=== PATIENT | male | born 1970 | race Caucasian/White ===

== ENCOUNTER 2018-11-25 09:00 | Outpatient (RCR) | payer OTHER, SELFPAY | END 2018-12-25 10:53 | disposition home or self-care (01) | LOC: PT.CARL 09:00 | PROVIDERS: Visit Provider Orthopaedic Surgery | DX: M25.562 Pain in left knee (principal) | CPT/HCPCS: 97010; 97014; 97110; 97112; 97116; 97140; 97163; 97164; G0283 ==

== ENCOUNTER 2020-07-24 15:29 | Emergency (ER) | payer BC, SELFPAY ==
[2020-07-24 15:40] VITALS: BP 134/68; PULSE 101; RESP 18; O2SAT 95; BMI 46.8
--- NOTE | 2020-07-24 15:45 | HMH.EDUTC ---
[facility] [place] Disposition Clinical Impression: Sinusitis Qualifiers: Sinusitis location: unspecified location Chronicity: unspecified Qualified Code(s): J32.9 - Chronic sinusitis, unspecified Disposition: Home, Self-Care Condition on Discharge: Good Instructions: Sinusitis, DI for Sinusitis, Doxycycline, Benzonatate Additional Instructions: *Monitor Temp, Over the counter Motrin or Tylenol as directed/as needed Tylenol every 4 hours and Motrin every 6 hours (as long as your family doctor has told you that you can take it) for fever or pain. and straight to ER if unable to lower temp less than 101.0 after medication given *Warm salt water gargles may help to soothe the throat *Throat Lozenges *Warm fluids like tea with honey may help to soothe the throat *Sleep elevated *Humidifier/Vaporizer Follow up IMMEDIATELY for new or worsening symptoms or no Noticeable improvement over the next 48-72 hours. 911 for difficulty breathing or swallowing You were tested for today for COVID19 your test result should be back in the next 24-48 hours, you may call to the [facility] to see if your test results are back in the next 48 hours [phone] [facility] hours are 9am-9pm You was given a handout with instructions for Self Quarantine and Self isolation for while you wait on test results and what to do if they are positive If you are positive the Health Dept will be contacting you also Prescriptions: Doxycycline Monohydrate [Doxycycline [place] 100mg Tab] 100 mg PO BID 7 Days #14 tab Transmission Status: Received by [id number] Benzonatate [Tessalon Perle 100mg Cap*] 100 mg PO TID PRN #30 cap PRN Reason: Cough Transmission Status: Received by [id number] Referrals: Geremias Ge [Primary Care Provider] - As needed Forms: Work/School Release Time of Disposition: 15:57 Medical Decision Making - Raffi Inquiry Pt receiving controlled substance: No Raffi was queried for this patient: No Vital Signs: 07/24/20 15:40 07/24/20 16:11 Temperature 98.1 F Temperature Source Oral Pulse Rate 101 H Pulse Rate [Radial] 101 H Respiratory Rate 18 18 Blood Pressure 134/68 Blood Pressure [Right Arm] 134/68 Blood Pressure Mean [Right Arm] 90 Blood Pressure Source Automatic Cuff Blood Pressure Source [Right Arm] Automatic Cuff Blood Pressure Position Sitting Blood Pressure Position [Right Arm] Sitting 02 Sat by Pulse Oximetry 95 Oxygen Delivery Method Room Air Room Air - Lab Data Lab results reviewed: Yes: I reviewed the patient's lab results. Lab Results 07/24/20 15:55: Influenza Type A Ag Negative, Influenza Type B Ag Negative Orders (Tests/Meds): ORDERS Category Date Time Status Covid-19 Nasal PCR ([facility]) Routine Lab 07/24/20 15:38 Received [facility] [place] HPI - General Stated complaint: SOA cough,sinus Time Seen by Provider: 07/24/20 15:46 Mode of Arrival: Ambulatory Source of Information: Patient Limitations: No Limitations Description of Symptoms (Recalled from Triage Doc. by RN): congestion, teeth hurt, SOB, weak muscles. HEENT Symptoms (Recalled from RN notes): Yes Resp Symptoms (Recalled from RN notes): No Skin Symptoms (Recalled from RN notes): No MS Symptoms (Recalled from RN notes): No Functional Status (Recalled from RN notes): wnl - History of Present Illness Provider Complaint: Patient state that for over a week he has been having sinus pain and pressure that even made his teeth hurt States that he feels like it is trying to break up and worried that it may be trying to move into his chest States that he has been coughing and feeling achy all over States that he sometimes get a bad sinus infection every year and kind of feels like that now - Related Data Previous Rx's Medication Instructions Recorded Benzonatate [Tessalon Perle 100mg 100 mg PO TID PRN #30 cap 07/24/20 Cap*] Doxycycline Monohydrate 100 mg PO BID 7 Days #14 tab 07/24/20 [Doxycycline [place] 100mg Tab] Allergies All
[2020-07-24 16:06] LABS: UTC Influenza A Antigen Negative (Negative)
[2020-07-24 16:07] LABS: UTC Influenza B Antigen Negative (Negative)
[2020-07-24 16:11] VITALS: BP 134/68; PULSE 101; RESP 18; TEMP 36.7; O2SAT 95
== END 2020-07-24 16:11 | disposition home or self-care (01) ==
PROVIDERS: Emergency Provider Nurse Practitioner; PCP Family Medicine
DX: U07.1 COVID-19 (principal)
CPT/HCPCS: 87804; 99201; U0003

== ENCOUNTER → 2021-05-02 11:22 | Outpatient (CLI) | payer BC, SELFPAY ==
[2021-05-02 14:39] LABS: Alanine Aminotransferase 25 U/L (12-78); Albumin Level 4.3 g/dl (3.5-5.0); Alkaline Phosphatase 66 U/L (38-126); Aspartate Amino Transferase 26 U/L (17-59); Bilirubin,Direct 0.2 mg/dl (0.0-0.4); Bilirubin,Indirect 0.4 mg/dL (0.0-0.9); Bilirubin,Total 0.6 mg/dl (0.2-1.3); Bilirubin,Unconjugated 0.4 mg/dL (0.0-1.1); Chol/HDL Ratio 2.5 (1-3.5); Cholesterol 80 mg/dl (140-200); HDL Cholesterol 32 mg/dl (40-60); Triglycerides 121 mg/dl (30-150); VLDL Cholesterol 24 mg/dL (0-40)
[2021-05-02 14:59] LABS: Direct LDL Cholesterol < 30.00 mg/dL (100-129)
== END ==
PROVIDERS: Visit Provider Internal Medicine Interventional Cardiology
DX: E78.00 Pure hypercholesterolemia, unspecified (principal)
CPT/HCPCS: 36415; 80061; 80076